=== PATIENT | female | born 1970 | race Caucasian/White ===

== ENCOUNTER 2016-09-28 16:42 | Inpatient (IN) | payer MEDICAID ==
[~2016-09-28] VITALS: Ht 152.4 cm; Wt 43.0 kg
[~2016-09-28 16:42] MED LIST: ASPI1CPM8 PO; ASPI81TA3 PO; ATOR80TA18 PO; CLIN300C7 PO; DICY10CA60 PO; FERR324T10 PO; FOLI-49 PO; GABA300C16 PO; IBUP400T22 PO; LEVE-5 PO; LOPE2CAP PO; MECL12.574 PO; MECL25TA2 PO; METF500T4 PO; MTF1000T PO; ONDA4TAB8 PO; SIME80TA PO
[2016-09-28 16:46] VITALS: Ht 152.4 cm; Wt 43.0 kg
[2016-09-28] MEDS ORDERED: ONDANSETRON 4 MG INJ IV STA (17:25)
[2016-09-28] MEDS ORDERED: SOD CHLORIDE 0.9% 1,000 ML IV STA (17:25)
[2016-09-28 17:44] LABS: ADD SCAN DIFF NO
[2016-09-28 17:46] LABS: BASOPHILS % 0.3 % (0.0-2.0); EOSINOPHILS # 0.1 10^3/ul (0.0-0.5); EOSINOPHILS % 1.2 % (0.0-7.0); HEMATOCRIT 30.5 % (37.0-47.0); HEMOGLOBIN 10.4 g/dl (12.0-16.0); LYMPHOCYTES # 3.4 10^3/ul (0.8-2.9); LYMPHOCYTES % 29.8 % (15.0-51.0); MEAN CORPUSCULAR HEMOGLOBIN 30.1 pg (29.0-33.0); MEAN CORPUSCULAR HGB CONC 34.1 g/dl (32.0-37.0); MEAN CORPUSCULAR VOLUME 88.4 fl (82.0-101.0); MEAN PLATELET VOLUME 10.5 fl (7.4-10.4); MONOCYTE # 0.9 10^3/ul (0.3-0.9); MONOCYTES % 7.6 % (0.0-11.0); NEUTROPHILS % 60.8 % (39.0-77.0); PLATELET COUNT 273 10^3/UL (140-415); RED BLOOD COUNT 3.45 10^6/ul (4.20-5.40); RED CELL DISTRIBUTION WIDTH 12.3 % (11.5-14.5); WHITE BLOOD COUNT 11.5 10^3/ul (4.8-10.8)
[2016-09-28 18:07] LABS: ALBUMIN 4.4 g/dl (3.3-4.9); CHLORIDE 97 mmol/L (97-110)
[2016-09-28 18:08] LABS: POTASSIUM 3.7 mmol/L (3.5-5.1); SODIUM 136 mmol/L (135-144)
[2016-09-28 18:10] LABS: ANION GAP 19 (8-16); ASPARTATE AMINO TRANSFERASE 25 IU/L (15-46); CARBON DIOXIDE 24 mmol/L (21-31)
[2016-09-28 18:11] LABS: ALANINE AMINOTRANSFERASE 33 IU/L (13-69); ALBUMIN/GLOBULIN RATIO 1.33; ALKALINE PHOSPHATASE 62 IU/L (42-121); BLOOD UREA NITROGEN 11 mg/dl (7-20); CALCIUM 9.8 mg/dl (8.4-10.2); GLUCOSE 117 mg/dl (70-220); TOTAL PROTEIN 7.7 g/dl (6.1-8.1)
[2016-09-28 18:13] LABS: AMMONIA < 9 umol/l (9-30)
[2016-09-28 18:15] LABS: ACETAMINOPHEN < 10.0 ug/ml (10.0-30.0); ETHANOL < 10.0 mg/dl; LACTIC ACID 6.7 mmol/L (0.5-2.2); SALICYLATE < 1.0 mg/dl (5.0-30.0)
[2016-09-28] MEDS ORDERED: CEFEPIME 2GM/50 ML (PMX) 50 ML IVPB STA (18:19)
--- NOTE | 2016-09-28 18:24 | RADRPT ---
PROCEDURE: CT brain without contrast CLINICAL INDICATION: Altered mental status TECHNIQUE: CT of the brain without contrast performed on a multidetector CT scanner, with multiplan ar reformats. One or more of the following dose reduction techniques were used: Automated exposure control, adjustment in mA and / or kV according to patient size, use of iterative reconstructive frannie hnique. CTDIvol = 44 mGy; DLP = 720 mGy-cm. COMPARISON: 03/28/2016 FINDINGS: There are areas of hypodensity with loss of foss-white differentiation likely representing infarcts, of indeterminate age involving the bilateral temporal - occipital, and right parietal regions. Ther e are chronic infarcts in the left temporal - parietal lobes redemonstrated, unchanged since the malena or exam. There is a focal area of hypodensity in the central brent. This may be artifactual but an un derlying lesion is difficult to exclude. No acute intracranial hemorrhage is identified. No extra- axial fluid collection is seen. There is no mass effect. No midline shift is identified. Ventricles and sulci are mild - moderately enlarged compatible with volume loss. Atherosclerotic calcifications of the proximal intracranial arteries are noted. Osseous structures are unremarkable. Mastoid air cells and imaged paranasal sinuses grossly clear. IMPRESSION: 1. Interval, age indeterminate bilateral temporal-occipital, right parietal infarcts. 2. Focal hypodensity in the central brent, which may be artifactual, but underlying lesion is diffic ult to exclude. 3. Above findings may be further evaluated with MRI. 4. No acute intracranial hemorrhage. 5. Chronic left temporal - parietal infarcts, unchanged. 6. Mild to moderate volume loss. RPTAT: EE .Shan Kirby MD, MD Date Time Electronically viewed and signed by .Shan Kirby MD, MD on 09/28/2016 18:23 .O/
[2016-09-28 18:26] LABS: TROPONIN-I < 0.012 ng/ml (0.00-0.12)
[2016-09-28] MEDS ORDERED: SOD CHLORIDE 0.9% 500 ML IV ONE (18:30)
[2016-09-28 18:41] LABS: ADD UMIC NO; URINE BILIRUBIN (Dip) NEGATIVE (NEGATIVE); URINE BLOOD (Dip) NEGATIVE (NEGATIVE); URINE COLOR LT. YELLOW (YELLOW); URINE GLUCOSE (Dip) NEGATIVE (NEGATIVE); URINE KETONES (Dip) NEGATIVE (NEGATIVE); URINE LEUKOCYTE ESTERASE (Dip) NEGATIVE (NEGATIVE); URINE NITRITE (Dip) NEGATIVE (NEGATIVE); URINE TOTAL PROTEIN (Dip) NEGATIVE (NEGATIVE); URINE UROBILINOGEN (Dip) 0.2 E.U./dL (0.1-1.0)
[2016-09-28 19:02] LABS: BARBITURATES Negative (NEGATIVE); BENZODIAZEPINES Negative (NEGATIVE); CANNABINOIDS Negative (NEGATIVE); COCAINE Negative (NEGATIVE); OPIATES Negative (NEGATIVE)
[2016-09-28] MEDS ORDERED: LEVETIRACETAM 1000 MG (PMX) 100 ML IVPB ONE (20:00)
--- NOTE | 2016-09-28 21:19 | RADRPT ---
PROCEDURE: XR Chest. CLINICAL INDICATION: Chest pain TECHNIQUE: AP view of the chest was obtained. COMPARISON: 06/17/2012 FINDINGS: The cardiomediastinal silhouette is within normal limits. The lungs are clear. No pleural effusion or pneumothorax is seen. Visualized osseous structures are unremarkable. IMPRESSION: No of active cardiopulmonary disease. RPTAT: EE .Shan Kirby MD, Date Time Electronically viewed and signed by .Shan Kirby MD, on 09/28/2016 21:19 .O/
--- NOTE | 2016-09-28 22:28 | ERA ---
ER Documentation Chief Complaint Date/Time DATE: 09/28/16 TIME: 22:18 Chief Complaint GENERALIZED BODY WEAKNESS,POOR PO INTAKE.HX OF SEIZURE HPI This 46-year-old female presents with generalized weakness since last night. Last night she vomited one time. Today she has very little nauseated but has not vomited. She's also has decreased mental status according her family. She has a history of seizures but seizure was not witnessed by family today. 3 weeks ago she was seen at [facility] for a seizure with a prolonged post ictal period for which she was admitted for. She has no focal areas of weakness and denies any pain. ROS All systems reviewed and are negative except as per history of present illness. Medications Home Meds Active Scripts Ondansetron Hcl* (Zofran*) 4 Mg Tablet, 4 MG PO Q6H for NAUSEA AND/OR VOMITING, #30 TAB Prov:CAT VILLEDA 03/28/16 Loperamide Hcl* (Imodium*) 2 Mg Capsule, 2 MG PO .WITH EACH DIARRHEA Y for DIARRHEA, #5 CAP MAX 16 mg/day Prov:CAT VILLEDA 10/28/15 Dicyclomine Hcl* (Bentyl*) 10 Mg Capsule, 10 MG PO QID for 3 Days, CAP Prov:CAT VILLEDA 10/28/15 Simethicone* (Anti-Gas/80*) 80 Mg Tab.chew, 80 MG PO Q6H Y for DISTENSION/GAS/ BLOATING for 7 Days, TAB.CHEW Prov:CAT VILLEDA 10/28/15 Ibuprofen* (Motrin*) 400 Mg Tab, 400 MG PO Q6, #30 TAB 0 Refills Prov:BECKY SAMANIEGO PA-C 09/12/15 Ondansetron Hcl* (Zofran*) 4 Mg Tablet, 4 MG PO Q8H Y for NAUSEA AND/OR VOMITING , #6 TAB Prov:JOLANTA BAILEY DO 06/12/15 Meclizine Hcl* (Antivert*) 12.5 Mg Tab, 12.5 MG PO Q6H Y for dizziness, #10 TAB Prov:LENORE BAILEYRAM DO 06/12/15 Meclizine Hcl* (Antivert*) 25 Mg Tablet, 25 MG PO Q6H Y for dizziness, #20 TAB Prov:CHASE GARCIA PA-C 03/01/15 Aspirin (Aspirin) 81 Mg Chew, 81 MG PO DAILY for 30 Days, TAB.CHEW Prov:CHANO SMITH 10/11/14 Reported Medications Levetiracetam* (Keppra*) 500 Mg Tablet, 500 MG PO BID 12/11/11 Folic Acid* (Folic Acid*) 1 Mg Tablet, 1 MG PO DAILY 12/11/11 Atorvastatin (Lipitor) 80 Mg Tablet, 80 MG PO DAILY 12/11/11 Dipyridamole-Aspirin* (Aggrenox*) 1 Cap Capsr, 1 CAP PO BID 12/11/11 Metformin* (Glucophage*) 500 Mg Tab, 500 MG PO DAILY 12/11/11 Clindamycin Hcl (Cleocin Hcl) 300 Mg Capsule, 300 MG PO DAILY 05/28/11 Gabapentin* (Gabapentin*) 300 Mg Capsule, 300 MG PO HS 05/28/11 Atorvastatin (Lipitor) 80 Mg Tablet, 80 MG PO DAILY 05/28/11 Levetiracetam* (Keppra*) 500 Mg Tablet, 500 MG PO 05/28/11 Metformin* (Glucophage*) 1,000 Mg Tablet, 1000 MG PO BID 05/28/11 Ferrous Fumarate (Hemocyte) 324 Mg Tablet, 324 MG PO BID 05/28/11 Dipyridamole-Aspirin* (Aggrenox*) 1 Cap Capsr, 1 CAP PO DAILY 05/28/11 Allergies Allergies: Coded Allergies: No Known Allergies (Verified Allergy, Mild, 03/28/16) PMhx/Soc History of Surgery: No Anesthesia Reaction: No Hx Neurological Disorder: Yes (SEIZURES) Hx Respiratory Disorders: No Hx Cardiac Disorders: No Hx Psychiatric Problems: No Hx Miscellaneous Medical Probl: Yes (DM) Hx Alcohol Use: No Hx Substance Use: No Hx Tobacco Use: No Physical Exam Vitals Vital Signs Date Time Temp Pulse Resp B/P Pulse Ox O2 Delivery O2 Flow Rate FiO2 09/28/16 21:49 78 19 122/78 100 Room Air 09/28/16 17:27 98.3 101 20 144/90 100 Room Air 09/28/16 16:46 98.9 91 18 131/76 98 Physical Exam Const: [] No distress Head: Atraumatic Eyes: Normal Conjunctiva ENT: Normal External Ears, Nose and Mouth. Neck: Full range of motion..~ No meningismus. Resp: Clear to auscultation bilaterally Cardio: Regular rate and rhythm, no murmurs Abd: Soft, non tender, non distended. Normal bowel sounds Skin: No petechiae or rashes Back: No midline or flank tenderness Ext: No cyanosis, or edema Neur: Awake and alert and oriented 2, deficit in day of the week, slow to answer some questions, cranial nerves II through XII intact, equal strength all extremities distal and proximal, no cerebellar deficits, gait not tested Psych: Normal Mood and Affect Result Diagram: 09/28/16173909/28/161739 Results 24 hrs Laboratory Tests Test 09/28/16 17:40 09/28/16 18:25 09/28/16 20:45 White Blood Count 11.510^3/ul Red Blood Count 3.4510^6/ul Hemoglobin 10.4g/dl Hematocrit 30.5% Mean Corpuscular Volume 88.4fl Mean Corpuscular Hemoglobin 30.1pg Mean Corpuscular Hemoglobin Concent 34.1g/dl Red Cell Distribution Width 12.3% Platelet Count 52673^3/UL Mean Platelet Volume 10.5fl Neutrophils % 60.8% Lymphocytes % 29.8% Monocytes % 7.6% Eosinophils % 1.2% Basophils % 0.3% Nucleated Red Blood Cells % 0.0/100WBC Neutrophils # 7.010^3/ul Lymphocytes # 3.410^3/ul Monocytes # 0.910^3/ul Eosinophils # 0.110^3/ul Basophils # 0.010^3/ul Nucleated Red Blood Cells # 0.010^3/ul Sodium Level 136mmol/L Potassium Level 3.7mmol/L Chloride Level 97mmol/L Carbon Dioxide Level 24mmol/L Anion Gap 19 Blood Urea Nitrogen 11mg/dl Creatinine 0.70mg/dl Glucose Level 117mg/dl Lactic Acid Level 6.7mmol/L 5.6mmol/L Calcium Level 9.8mg/dl Total Bilirubin 0.0mg/dl Direct Bilirubin 0.00mg/dl Indirect Bilirubin 0.0mg/dl Aspartate Amino Transf (AST/SGOT) 25IU/L Alanine Aminotransferase (ALT/SGPT) 33IU/L Alkaline Phosphatase 62IU/L Ammonia < 9umol/l Troponin I < 0.012ng/ml Total Protein 7.7g/dl Albumin 4.4g/dl Globulin 3.30g/dl Albumin/Globulin Ratio 1.33 Lipase 144U/L Salicylates Level < 1.0mg/dl Acetaminophen Level < 10.0ug/ml Ethyl Alcohol Level < 10.0mg/dl Urine Color LT. YELLOW Urine Clarity CLEAR Urine pH 6.0 Urine Specific [place] 1.010 Urine Ketones NEGATIVE Urine Nitrite NEGATIVE Urine Bilirubin NEGATIVE Urine Urobilinogen 0.2 E.U./dL Urine Leukocyte Esterase NEGATIVE Urine Hemoglobin NEGATIVE Urine Glucose NEGATIVE% Urine Total Protein NEGATIVE Urine Opiates Screen Negative Urine Barbiturates Negative Urine Amphetamines Screen Negative Urine Benzodiazepines Screen Negative Urine Cocaine Screen Negative Urine Cannabinoids Negative Current Medications Medications (Trade) Dose Ordered Sig/Aldo Route PRN Reason Start Time Stop Time Status Last Admin Dose Admin Sodium Chloride (NS) 1,000 ml @ 1,000 mls/hr Q1H STAT IV 09/28/16 17:25 09/28/16 18:24 DC 09/28/16 17:43 Ondansetron HCl 4 mg 4 mg ONCE STAT IV 09/28/16 17:25 09/28/16 17:29 DC 09/28/16 17:43 Cefepime HCl 50 ml @ 100 mls/hr ONCE STAT IVPB 09/28/16 18:19 09/28/16 18:48 DC 09/28/16 19:13 Sodium Chloride 500 ml @ 500 mls/hr Q1H ONCE IV 09/28/16 18:30 09/28/16 19:29 DC 09/28/16 19:13 Levetiracetam 100 ml @ 400 mls/hr ONCE ONCE IVPB 09/28/16 20:00 09/28/16 20:14 DC 09/28/16 20:01 Sodium Chloride (NS) 1,000 ml @ 1,000 mls/hr Q1H ONCE IV 09/28/16 22:30 09/28/16 23:29 UNV Aspirin (Aspirin) 325 mg ONCE ONCE PO 09/28/16 22:30 09/28/16 22:31 UNV Procedures/MDM Seizure with prolonged postictal period. Old infarcts are seen on CT with no acute lesions. I doubt acute stroke on her because patient's lactic acid elevation is consistent with acute seizure. Decreased mental status is most consistent with postictal period. Patient has no other lab abnormalities suspicious for severe dehydration that may cause such high lactic acid. No obvious infection is found either to suggest sepsis causing the increased lactic acid. She did have a slightly elevated white blood cell count which is likely consistent with the seizure. Also had an isolated heart rate just over 100. Still do not believe these indicate sepsis. Prior to receiving all the results I did cover her with 1 g of Rocephin IV. I did give the patient 325 mg aspirin just in case. She is also hydrated with normal saline. Did load her with 1 g of Keppra. I'm going to admit her to telemetry I spoke with Dr. Campo who will be admitting. She'll likely receive a neurology consult and EEG. CT head interpretation: I see no acute process. Old lacunar infarcts visualized. I see no hemorrhage, no mass effect no midline shift, no skull fracture. Chest x-ray interpretation: I see no acute process, no infiltrate, no pulmonary edema, no pneumothorax, no fractures EKG interpretation: Normal sinus rhythm rate of 80, left axis deviation, no ST or T-wave changes concerning for acute ischemia. monitor and storage bin tender interpretation: Normal sinus rhythm without arrhythmia Departure Diagnosis: Primary Impression: Seizure Additional Impressions: Post-ictal state Normocytic anemia Condition: Stable ELISEO VEGA DO Sep 28, 2016 22:27
[2016-09-28] MEDS ORDERED: ASPIRIN 325 MG TAB PO ONE (22:30)
[2016-09-28] MEDS ORDERED: SOD CHLORIDE 0.9% 1,000 ML IV ONE (22:30)
[2016-09-29] VITALS (9 sets, daily range): BP systolic 97–110; BP diastolic 58–67; PULSE 69–95; RESP 16–18; TEMP 98.3
[2016-09-29] MEDS ORDERED: ONDANSETRON 4 MG INJ IV PRN
[2016-09-29] MEDS ORDERED: ACETAMINOPHEN 325 MG TAB PO PRN
[2016-09-29] MEDS ORDERED: MECLIZINE 12.5 MG TAB PO PRN (07:30)
[2016-09-29] MEDS ORDERED: NACL 0.9% 3 ML SYG IV SCH (07:30)
[2016-09-29] MEDS ORDERED: morphine 2 MG INJ IV PRN (07:30)
--- NOTE | 2016-09-29 08:57 | HP ---
DATE OF ADMISSION: 09/28/2016 TIME SEEN: 2330 CHIEF COMPLAINT: Generalized weakness. HISTORY OF PRESENT ILLNESS: The patient is a 46-year-old female with a history of CVA, diabetes, hy pertension, dyslipidemia and seizure disorder who presented to the emergency department with general ized weakness. The patient was seen at [facility] 3 weeks ago for a seizure with a prolonged p ostictal state. When the patient presented to the ER family reported that the patient has been feel ing weak and also she has been having a hard time remembering things, especially since yesterday, wh ich they thought was from recovering from a postictal state. The patient also has been nauseated an d actually vomited once last night which was nonbloody, nonbilious. When she presented to the ER, blood pressure was 131/76, heart rate 91, respiratory rate 18, tempera ture 98.9, oxygen saturation ____% on room air. Laboratory shows a WBC of 11.5, hemoglobin 10.4, la ctic acid of 6.7, which also trended to 3.9. A brain CT was done and it showed age indeterminate bi lateral temporo-occipital and right parietal infarct compared to a CT scan from 03/2016. Also noted was focal hypodensity in the central brent which may be artifactual but underlying lesion is difficu lt to exclude. Also noted is a chronic left temporal-parietal infarct, unchanged. No acute intracr anial hemorrhage was noted. The patient was given IV Keppra, cefepime, IV fluid and Zofran while sh e was in the ER. Note that patient has not witnessed any seizure activity recently except as woo shafer the one that happened 3 weeks ago. REVIEW OF SYSTEMS: Negative except as mentioned in HPI. PAST MEDICAL HISTORY: As per HPI. SOCIAL HISTORY: No history of tobacco, alcohol or illicit drug use. ALLERGIES: NO KNOWN DRUG ALLERGIES. HOME MEDICATIONS: 1. Bentyl. 2. Ferrous fumarate. 3. Lipitor. 4. Aspirin. 5. Gabapentin. 6. Keppra. 7. Meclizine. 8. Zofran. 9. ____ 10. Metformin. 11. Folic acid. PHYSICAL EXAMINATION: VITAL SIGNS: Stable. GENERAL: The patient is sleepy but arousable and appears weak. HEENT: No obvious head deformity. Pupils equal and reactive. Extraocular muscles intact. CARDIOVASCULAR: Slight tachycardia with regular rhythm. LUNGS: Clear anteriorly. ABDOMEN: Soft. No grimaces noted on palpation, nontender. There are positive bowel sounds. EXTREMITIES: No edema. NEUROLOGIC: Both upper extremities with decreased strength. LABORATORY DATA: Pertinent positive results as mentioned in the HPI. IMAGING: Brain CT with results as mentioned in the HPI. Chest x-ray shows no active cardiopulmonar y disease. IMPRESSION: 1. Altered mental status. 2. History of seizure disorder, last seizure 3 weeks ago. 3. History of cerebrovascular accident. 4. Age indeterminate new infarct, probably subacute infarct. 5. Lactic acidosis. 6. History of diabetes. 7. History of hypertension, blood pressure within goal. 8. Mild leukocytosis. PLAN: The patient's altered mentation and weakness could be a result of a seizure or postictal stat e and also given the CT of the head finding of age indeterminant new infarct as compared to the last CAT scan from 6 months ago, it could be from a new CVA. Note that the patient does have a history of a stroke in the past. We will obtain MRI of the brain to further evaluate the new infarct. We w ill continue anti-seizure medication, continue statin and aspirin. We will place a neurology consul t. We will have a physical therapy evaluation. Her lactic acidosis is without a source of infection, but it is currently trending down. Her initia l urinalysis is negative for UTI, but we will check a urine culture as well as a blood culture. A c hest x-ray was negative for acute cardiopulmonary disease. Further workup and management will be per clinical course. Dictated By: ABEL SARAVIA/CANDELARIA Conf#: [id number] DID#: [id number]
[2016-09-29] MEDS ORDERED: FERROUS FUMARATE 324 MG PO SCH (09:00)
[2016-09-29] MEDS: FERROUS FUMARATE (SR) TAB PO SCH ×2 (10:48→20:36)
[2016-09-29] MEDS: ATORVASTATIN 80 MG TAB PO SCH (10:48)
[2016-09-29] MEDS: DIPYRIDAMOLE/ASPIRIN (SR) CAP PO SCH ×2 (10:48→20:36)
[2016-09-29] MEDS: LEVETIRACETAM 500 MG TAB PO SCH ×2 (10:49→20:36)
[2016-09-29] MEDS: ACETAMINOPHEN 325 MG TAB PO PRN ×2 (10:49→20:37)
[2016-09-29 10:51] LABS: ADD SCAN DIFF NO
[2016-09-29] MEDS: DEXTROSE 5%-0.45% NACL 1,000 ML IV SCH ×2 (10:53→21:41)
[2016-09-29] MEDS: ENOXAPARIN 40 MG/0.4 ML SYG SC SCH (10:53)
[2016-09-29 11:00] LABS: BASOPHILS % 0.4 % (0.0-2.0); EOSINOPHILS # 0.1 10^3/ul (0.0-0.5); EOSINOPHILS % 1.3 % (0.0-7.0); HEMATOCRIT 28.9 % (37.0-47.0); HEMOGLOBIN 9.8 g/dl (12.0-16.0); LYMPHOCYTES # 2.1 10^3/ul (0.8-2.9); LYMPHOCYTES % 25.8 % (15.0-51.0); MEAN CORPUSCULAR HEMOGLOBIN 30.6 pg (29.0-33.0); MEAN CORPUSCULAR HGB CONC 33.9 g/dl (32.0-37.0); MEAN CORPUSCULAR VOLUME 90.3 fl (82.0-101.0); MEAN PLATELET VOLUME 10.4 fl (7.4-10.4); MONOCYTE # 0.6 10^3/ul (0.3-0.9); MONOCYTES % 7.6 % (0.0-11.0); NEUTROPHIL # 5.2 10^3/ul (1.6-7.5); NEUTROPHILS % 64.6 % (39.0-77.0); PLATELET COUNT 246 10^3/UL (140-415); RED CELL DISTRIBUTION WIDTH 12.4 % (11.5-14.5)
[2016-09-29 11:09] LABS: ALBUMIN 3.3 g/dl (3.3-4.9)
[2016-09-29 11:10] LABS: POTASSIUM 3.7 mmol/L (3.5-5.1)
[2016-09-29 11:12] LABS: ALBUMIN/GLOBULIN RATIO 1.03; BILIRUBIN,INDIRECT 0.1 mg/dl (0-1.1); BILIRUBIN,TOTAL 0.1 mg/dl (0.2-1.3); CREATININE 0.6 mg/dl (0.44-1.00); TOTAL PROTEIN 6.5 g/dl (6.1-8.1)
[2016-09-29 11:13] LABS: CALCIUM 8.3 mg/dl (8.4-10.2); MAGNESIUM 1.6 mg/dl (1.7-2.5)
[2016-09-29 11:14] LABS: CHOL/HDL RATIO 3.1 RATIO
[2016-09-29] MEDS ORDERED: GLUCAGON 1 MG INJ IM PRN (11:30)
[2016-09-29] MEDS ORDERED: GLUCOSE GEL 15 GRAM TUBE PO PRN ×2 (11:30)
[2016-09-29] MEDS ORDERED: DEXTROSE 50% 50 ML SYRINGE IV PRN ×2 (11:30)
[2016-09-29] MEDS ORDERED: GLUCOSE GEL 15 GRAM TUBE BUCCAL PRN (11:30)
--- NOTE | 2016-09-29 11:50 | RADRPT ---
PROCEDURE: US carotid arteries. CLINICAL INDICATION: Dizziness. TECHNIQUE: Multiple sonographic images of the carotid arteries and vertebral arteries were obtaine d utilizing foss scale, duplex, and color-flow imaging. The images were reviewed on a PACS workstati on. COMPARISON: No prior studies are available for comparison. FINDINGS: Evaluation of the right carotid bifurcation region reveals no atherosclerotic disease. Evaluation of the left carotid bifurcation region reveals no atherosclerotic disease. There is antegrade flow within the vertebral arteries bilaterally. RIGHT CAROTID MEASUREMENTS: Common Carotid [id number] (cm/sec) Internal Carotid Artery 116 (cm/sec) External Carotid Artery 116 (cm/sec) Vertebral Artery 93 (cm/sec) Internal Carotid/Common Carotid1.2 LEFT CAROTID MEASUREMENTS: Common Carotid [id number] (cm/sec) Internal Carotid Artery 114 (cm/sec) External Carotid Artery 97 (cm/sec) Vertebral Artery 18 (cm/sec) Internal Carotid/Common Carotid1.0 Validated velocity measurements with angiographic measurements. Velocity criteria are extrapolated f rom diameter data as defined by the Society of Radiologists in Ultrasound Consensus Conference. Radi ology 2003; 229;340-346. This study does indirectly reference the measurement of the distal ICA shiloh meter as the denominator for stenosis measurement. IMPRESSION: 1. Normal carotid arteries. 2. Normal antegrade flow in the vertebral arteries bilaterally. RPTAT: QQ SRU Consensus Conference Criteria for the Diagnosis of Carotid Artery Stenosis* Degree of Stenosis, % ICA PSV, cm/sec Plaque Estimate, % ICA/CCA PSV Ratio Normal <125 None <2.0 <50 <125 <50 <2.0 50 69 125-230 >50 2.0-4.0 >70 but less than near occlusion >230 >50 <4.0 Near occlusion High, low, or undetectable Visible Variable Total occlusion Undetectable Visible, no detectable lumen Not applicable *Cartoid artery stenosis: foss-scale and Doppler US diagnosis. Society of Radiologists in Ultrasound Consensus Conference. Radiology 2003; 229: 340-346 .Lenin Santamaria MD, MD Date Time Electronically viewed and signed by .Lenin Santamaria MD, on 09/29/2016 11:50 .R/
--- NOTE | 2016-09-29 11:58 | PN ---
Date/Time of Note Date/Time of Note DATE: 09/29/16 TIME: 11:56 Assessment/Plan VTE Prophylaxis VTE Prophylaxis Intervention: SCD's Lines/Catheters IV Catheter Type (from Nrs): Peripheral IV Assessment/Plan Assessment/Plan 1. Altered mental status. 2. History of seizure disorder, last seizure 3 weeks ago. 3. History of cerebrovascular accident. 4. Age indeterminate new infarct, probably subacute infarct. 5. Lactic acidosis. 6. History of diabetes. 7. History of hypertension, blood pressure within goal. 8. Mild leukocytosis. PLAN: start diet, pt passed swallow MRI brain, CT showed old stroke BP control Activity as tolerated will follow up Subjective 24 Hr Interval Summary Free Text/Dictation doing ok, bP stable, Wants to eat Exam/Review of Systems Vital Signs Vitals Vital Signs Date Time Temp Pulse Resp B/P Pulse Ox O2 Delivery O2 Flow Rate FiO2 09/29/16 11:47 98.9 73 16 98/62 98 09/29/16 07:22 Room Air Exam GENERAL: The patient is sleepy but arousable and appears weak. HEENT: No obvious head deformity. Pupils equal and reactive. Extraocular muscles intact. CARDIOVASCULAR: Slight tachycardia with regular rhythm. LUNGS: Clear anteriorly. ABDOMEN: Soft. No grimaces noted on palpation, nontender. There are positive bowel sounds. EXTREMITIES: No edema. NEUROLOGIC: Both upper extremities with decreased strength. Results Result Diagram: 09/29/16 1030 09/29/16 1030 Results 24 hrs Laboratory Tests Test 09/28/16 17:40 09/28/16 18:25 09/28/16 20:45 09/28/16 23:00 White Blood Count 11.5 #H Red Blood Count 3.45 L Hemoglobin 10.4 L Hematocrit 30.5 L Mean Corpuscular Volume 88.4 Mean Corpuscular Hemoglobin 30.1 Mean Corpuscular Hemoglobin Concent 34.1 Red Cell Distribution Width 12.3 # Platelet Count 273 Mean Platelet Volume 10.5 #H Neutrophils % 60.8 Lymphocytes % 29.8 Monocytes % 7.6 Eosinophils % 1.2 Basophils % 0.3 Nucleated Red Blood Cells % 0.0 Neutrophils # 7.0 Lymphocytes # 3.4 H Monocytes # 0.9 Eosinophils # 0.1 Basophils # 0.0 Nucleated Red Blood Cells # 0.0 Sodium Level 136 Potassium Level 3.7 Chloride Level 97 Carbon Dioxide Level 24 Anion Gap 19 H Blood Urea Nitrogen 11 Creatinine 0.70 Glucose Level 117 Lactic Acid Level 6.7 *H 5.6 *H 3.9 H Calcium Level 9.8 Total Bilirubin 0.0 L Direct Bilirubin 0.00 Indirect Bilirubin 0.0 Aspartate Amino Transf (AST/SGOT) 25 Alanine Aminotransferase (ALT/SGPT) 33 Alkaline Phosphatase 62 Ammonia < 9 L Troponin I < 0.012 Total Protein 7.7 Albumin 4.4 Globulin 3.30 H Albumin/Globulin Ratio 1.33 Lipase 144 Salicylates Level < 1.0 L Acetaminophen Level < 10.0 L Ethyl Alcohol Level < 10.0 Urine Color LT. YELLOW Urine Clarity CLEAR Urine pH 6.0 Urine Specific [place] 1.010 Urine Ketones NEGATIVE Urine Nitrite NEGATIVE Urine Bilirubin NEGATIVE Urine Urobilinogen 0.2 E.U./dL Urine Leukocyte Esterase NEGATIVE Urine Hemoglobin NEGATIVE Urine Glucose NEGATIVE Urine Total Protein NEGATIVE Urine Opiates Screen Negative Urine Barbiturates Negative Urine Amphetamines Screen Negative Urine Benzodiazepines Screen Negative Urine Cocaine Screen Negative Urine Cannabinoids Negative Test 09/29/16 10:30 White Blood Count 8.0 # Red Blood Count 3.20 L Hemoglobin 9.8 L Hematocrit 28.9 L Mean Corpuscular Volume 90.3 Mean Corpuscular Hemoglobin 30.6 Mean Corpuscular Hemoglobin Concent 33.9 Red Cell Distribution Width 12.4 Platelet Count 246 Mean Platelet Volume 10.4 Neutrophils % 64.6 Lymphocytes % 25.8 Monocytes % 7.6 Eosinophils % 1.3 Basophils % 0.4 Nucleated Red Blood Cells % 0.0 Neutrophils # 5.2 Lymphocytes # 2.1 Monocytes # 0.6 Eosinophils # 0.1 Basophils # 0.0 Nucleated Red Blood Cells # 0.0 Sodium Level 139 Potassium Level 3.7 Chloride Level 106 Carbon Dioxide Level 24 Anion Gap 13 Blood Urea Nitrogen 9 Creatinine 0.60 Glucose Level 108 Hemoglobin A1c 6.2 H Calcium Level 8.3 L Magnesium Level 1.6 L Total Bilirubin 0.1 L Direct Bilirubin 0.00 Indirect Bilirubin 0.1 Aspartate Amino Transf (AST/SGOT) 22 Alanine Aminotransferase (ALT/SGPT) 36 Alkaline Phosphatase 56 Total Protein 6.5 # Albumin 3.3 # Globulin 3.20 Albumin/Globulin Ratio 1.03 Triglycerides Level 116 Cholesterol Level 106 LDL Cholesterol, Calculated 49 HDL Cholesterol 34 Cholesterol/HDL Ratio 3.1 Medications Medications Current Medications Dextrose/Sodium Chloride (D5-1/2ns) 1,000 ml @ 70 mls/hr [id number] IV Last administered on 09/29/16 10:53; Admin Dose 70 MLS/HR; Start 09/29/16 at 07:23 Ondansetron HCl (Zofran Inj) 4 mg Q6H PRN IV NAUSEA AND/OR VOMITING; Start at 07:30 Acetaminophen (Tylenol Tab) 650 mg Q6H PRN PO PAIN LEVEL 1-3 OR FEVER Last administered on 09/29/16 10:49; Admin Dose 650 MG; Start 09/29/16 at 07:30 Morphine Sulfate (morphine) 2 mg Q4H PRN IV PAIN LEVEL 7-10; Start 09/29/16 at 07:30 Enoxaparin Sodium (Lovenox) 40 mg DAILY SC Last administered on 09/29/16 10:53 ; Admin Dose 40 MG; Start 09/29/16 at 09:00 Atorvastatin Calcium (Lipitor) 80 mg DAILY PO Last administered on 09/29/16 10 :48; Admin Dose 80 MG; Start 09/29/16 at 09:00 Dipyridamole/ Aspirin (Aggrenox) 1 cap BID PO Last administered on 09/29/16 10 :48; Admin Dose 1 CAP; Start 09/29/16 at 09:30 Levetiracetam (Keppra) 500 mg BID PO Last administered on 09/29/16 10:49; Admin Dose 500 MG; Start 09/29/16 at 09:00 Meclizine HCl (Antivert) 12.5 mg Q6H PRN PO dizziness; Start 09/29/16 at 07:30 Docusate Sodium/ Ferrous Fumarate (Susy-Sequels) 1 tab BID PO Last administered on 09/29/16 10:48; Admin Dose 1 TAB; Start 09/29/16 at 10:00 Insulin Aspart (Novolog Insulin Pen) NOVOLOG *MILD* ALGORITHM Q6 SC ; Start at 12:00 Diagnostic Test (Pha) (Accu-Chek) 1 ea Q6 XX ; Start 09/29/16 at 12:00 Miscellaneous Information 1 ea NOTE XX ; Start 09/29/16 at 11:30 Glucose (Glutose) 15 gm Q15M PRN PO DECREASED GLUCOSE; Start 09/29/16 at 11:30 Glucose (Glutose) 22.5 gm Q15M PRN PO DECREASED GLUCOSE; Start 09/29/16 at 11: 30 Dextrose (D50w Syringe) 25 ml Q15M PRN IV DECREASED GLUCOSE; Start 09/29/16 at 11:30 Dextrose (D50w Syringe) 50 ml Q15M PRN IV DECREASED GLUCOSE; Start 09/29/16 at 11:30 Glucagon (Glucagen) 1 mg Q15M PRN IM DECREASED GLUCOSE; Start 09/29/16 at 11:30 Glucose (Glutose) 15 gm Q15M PRN BUCCAL DECREASED GLUCOSE; Start 09/29/16 at 11 :30 FANNY ASHRAF MD Sep 29, 2016 11:58
[2016-09-29] MEDS ORDERED: ACCU-CHEK XX SCH ×2 (12:00)
[2016-09-29] MEDS ORDERED: INSULIN ASPART [NOVOLOG] 3 ML PEN SC SCH (12:00)
[2016-09-29] MEDS: ONDANSETRON 4 MG INJ IV PRN ×3 (13:11→23:21)
--- NOTE | 2016-09-29 15:52 | RADRPT ---
PROCEDURE: MR Brain without contrast. CLINICAL INDICATION: 46-year-old female with suspected acute infarct. TECHNIQUE: An MRI of the brain was performed without contrast utilizing the following sequences: Sagittal T1 weighted, sagittal FLAIR, axial T1, axial FLAIR, axial T2 weighted, axial diffusion weig hted, axial ADC mapping. Images were reviewed on a PACS workstation. COMPARISON: 09/28/2016, 03/28/2016, 11/23/2013, 02/05/2013 FINDINGS: Diffusion weighted sequences demonstrate interval development of acute lobar infarction involving th e right posterior temporal and occipital lobes, with diffuse gyral swelling in these regions. There is also suggestion of diffusion restriction involving the left medial frontal lobe (axial series im age 11). There is stable appearance of encephalomalacia involving the left posterior temporal lobe, which is stable compared to prior CT examinations. There is ex vacuo enlargement of the atrium / oc cipital horn of the left lateral ventricle related to the volume loss from prior infarct. The brain stem and cerebellum are normal in appearance. There is a baseline mild to moderate prominence of th e cerebral sulci, lateral and third ventricles. There is no intracranial hemorrhage, extra-axial fl uid collection, mass lesion, midline shift or hydrocephalous. There is a baseline of mild to modera te periventricular and subcortical white matter lesions, which may be related to chronic microangiopathic changes. Normal flow voids are visible the proximal intracranial arteries and dura l sinuses, indicating patency. The midline structures are intact. The paranasal sinuses, mastoid air cells and middle ear cavities are normally aerated. The orbits, calvarium and extracranial soft tissues are normal in appearance. The cerebellopontine angles are no rmal. No evidence of internal acoustic canal or cerebellopontine angle mass. IMPRESSION: 1. 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 CTA of the neck and head is recommended for fur ther evaluation. 2. Suggestion of acute infarct involving the medial left temporal lobe, which were not visualized o n the prior examinations. 3. No intracranial hemorrhage, mass lesion or hydrocephalous. 4. Stable mild to moderate peripheral and central cerebral volume loss. 5. Stable mild to moderate periventricular and subcortical white matter lesions, which may be relat ed to chronic microangiopathic changes versus sequelae of migraine headaches. The above findings were discussed with Patient's Nurse Dilia by telephone on 09/29/2016 3:48:48 PM. RPTAT: HGAS .Salazar Escobar MD, Date Time Electronically viewed and signed by .Salazar Escobar MD, MD on 09/29/2016 15:51 .S/
[2016-09-29] MEDS: ACCU-CHEK XX SCH ×2 (17:35→20:36)
[2016-09-29] MEDS: INSULIN ASPART [NOVOLOG] 3 ML PEN SC SCH ×2 (18:02→20:36)
[2016-09-29] MEDS ORDERED: IODIXANOL LOCM 100 ML BTL ONE (18:11)
[2016-09-29] MEDS ORDERED: SOD CHLORIDE 0.9% 100 ML ONE (18:11)
--- NOTE | 2016-09-29 19:28 | RADRPT ---
PROCEDURE: CTA head and neck CLINICAL INDICATION: CVA. Altered mental status. TECHNIQUE: The study was performed utilizing multidetector CT scanner. Direct thin section axial s ections were obtained through the head and neck after the uneventful administration of 100 cc of Vis ipaque 320 nonionic intravenous contrast material. Coronal and sagittal as well as maximal intensit y projection reformations were obtained. 3-D images were made. The images were reviewed on a PACS w orkstation. One or more the following does reduction techniques were utilized: Automated exposure co ntrol, adjustment of themA/ or kV according to patient's size, or use of iterative reconstruction te chnique. The total CTDIvol is 49.5, 8.37 mGy and the DLP is 329.4 mGy-cm. COMPARISON: Brain MRI of the same day. Carotid ultrasound of the same day. FINDINGS: CTA NECK: The origins of the great vessels off the aortic arch are patent without significant stenosis. The c ommon carotid and internal carotid arteries are patent without significant stenosis by NASCET criter ia. Direct measurements of vessel diameters was made in reference to measurements of the distal inte rnal carotid artery diameter. The vertebral arteries are also patent without high-grade stenosis. CTA BRAIN: The internal carotid arteries are patent without significant stenosis. The proximal middle cerebral arteries and anterior cerebral arteries are patent without significant stenosis. The intracranial v ertebral arteries, basilar artery, and posterior cerebral arteries are also unremarkable without sig nificant stenosis. No aneurysm or vascular malformation is identified. IMPRESSION: 1. Patent major intracranial and neck arteries. RPTAT: HH .Cliff Robertson MD, MD Date Time Electronically viewed and signed by .Cliff Robertson MD, MD on 09/29/2016 19:28 .N/
[2016-09-29] MEDS ORDERED: SUMATRIPTAN 6 MG/0.5 ML INJ SC ONE (23:00)
[2016-09-30] VITALS (12 sets, daily range): BP systolic 107–116; BP diastolic 55–73; PULSE 59–103; RESP 16–18
--- NOTE | 2016-09-30 00:22 | RADRPT ---
PROCEDURE: CTA head and neck CLINICAL INDICATION: CVA. Altered mental status. TECHNIQUE: The study was performed utilizing multidetector CT scanner. Direct thin section axial se ctions were obtained through the head and neck after the uneventful administration of 100 cc of Visi paque 320 nonionic intravenous contrast material. Coronal and sagittal as well as maximal intensity projection reformations were obtained. 3-D images were made. The images were reviewed on a PACS work station. One or more the following does reduction techniques were utilized: Automated exposure contr ol, adjustment of themA/ or kV according to patient's size, or use of iterative reconstruction techn ique. The total CTDIvol is 49.5, 8.37 mGy and the DLP is 329.4 mGy-cm. COMPARISON: Brain MRI of the same day. Carotid ultrasound of the same day. FINDINGS: CTA NECK: The origins of the great vessels off the aortic arch are patent without significant stenosis. The co mmon carotid and internal carotid arteries are patent without significant stenosis by NASCET criteri a. Direct measurements of vessel diameters was made in reference to measurements of the distal inter nal carotid artery diameter. The vertebral arteries are also patent without high-grade stenosis. CTA BRAIN: The internal carotid arteries are patent without significant stenosis. The proximal middle cerebral arteries and anterior cerebral arteries are patent without significant stenosis. The intracranial ve rtebral arteries, basilar artery, and posterior cerebral arteries are also unremarkable without sign ificant stenosis. No aneurysm or vascular malformation is identified. IMPRESSION: 1. Patent major intracranial and neck arteries. RPTAT: HH .Cliff Robertson MD, MD Date Time Electronically viewed and signed by .Cliff Robertson MD, MD on 09/30/2016 00:21 .N/
[2016-09-30] MEDS: DEXTROSE 5%-0.45% NACL 1,000 ML IV SCH ×2 (06:33→11:58)
[2016-09-30] MEDS: ACCU-CHEK XX SCH ×3 (07:30→17:35)
[2016-09-30 07:37] LABS: ADD SCAN DIFF NO
[2016-09-30 07:43] LABS: BASOPHILS % 0.3 % (0.0-2.0); EOSINOPHILS # 0.1 10^3/ul (0.0-0.5); EOSINOPHILS % 0.9 % (0.0-7.0); HEMATOCRIT 29.6 % (37.0-47.0); LYMPHOCYTES # 3.1 10^3/ul (0.8-2.9); LYMPHOCYTES % 28.9 % (15.0-51.0); MEAN CORPUSCULAR HEMOGLOBIN 30.4 pg (29.0-33.0); MEAN CORPUSCULAR HGB CONC 33.8 g/dl (32.0-37.0); MEAN PLATELET VOLUME 10.6 fl (7.4-10.4); MONOCYTE # 0.9 10^3/ul (0.3-0.9); MONOCYTES % 8.3 % (0.0-11.0); NEUTROPHIL # 6.6 10^3/ul (1.6-7.5); NEUTROPHILS % 61.2 % (39.0-77.0); PLATELET COUNT 266 10^3/UL (140-415); RED BLOOD COUNT 3.29 10^6/ul (4.20-5.40); RED CELL DISTRIBUTION WIDTH 12.4 % (11.5-14.5); WHITE BLOOD COUNT 10.7 10^3/ul (4.8-10.8)
[2016-09-30 08:05] LABS: CALCIUM 8.5 mg/dl (8.4-10.2); CREATININE 0.61 mg/dl (0.44-1.00); MAGNESIUM 1.7 mg/dl (1.7-2.5); PHOSPHORUS 3.2 mg/dl (2.5-4.9); POTASSIUM 4.1 mmol/L (3.5-5.1)
[2016-09-30] MEDS: ATORVASTATIN 80 MG TAB PO SCH (08:37)
[2016-09-30] MEDS: FERROUS FUMARATE (SR) TAB PO SCH ×2 (08:37→21:24)
[2016-09-30] MEDS: LEVETIRACETAM 500 MG TAB PO SCH ×2 (08:37→21:24)
[2016-09-30] MEDS: DIPYRIDAMOLE/ASPIRIN (SR) CAP PO SCH ×2 (08:37→21:24)
[2016-09-30] MEDS: ENOXAPARIN 40 MG/0.4 ML SYG SC SCH (08:40)
[2016-09-30] MEDS: INSULIN ASPART [NOVOLOG] 3 ML PEN SC SCH ×4 (09:55→21:25)
--- NOTE | 2016-09-30 10:16 | PN ---
Date/Time of Note Date/Time of Note DATE: 09/30/16 TIME: 10:10 Assessment/Plan VTE Prophylaxis VTE Prophylaxis Intervention: SCD's Lines/Catheters IV Catheter Type (from Nrsg): Peripheral IV Assessment/Plan Assessment/Plan 1. Altered mental status 2/2 acute CVA 2. acute CVA involving right posterior temporal and occipital lobes, concerning for right DOCUMENTATION LEAD distribution infarct. CTA of the neck and head is recommended for further evaluation. Suggestion of acute infarct involving the medial left temporal lobe. 3. History of seizure disorder, last seizure 3 weeks ago. 4. History of cerebrovascular accident. 5. History of diabetes. 7. History of hypertension, blood pressure within goal. 8. Mild leukocytosis. PLAN: started diet, pt passed swallow.s/p speech consult MRI brain showed acute CVA, CTA head and neck has been ordered neurolgoy to see pt Acute rehab consult BP control PT to evaluate pt for ambulation and safety will follow up Subjective 24 Hr Interval Summary Free Text/Dictation MRI showed acute infarction involving the right posterior temporal and occipital lobes, concerning for right DOCUMENTATION LEAD distribution infarct. CTA of the neck and head is recommended for further evaluation. Suggestion of acute infarct involving the medial left temporal lobe, which were not visualized on the prior examinations. Neurology consulted, BP stable, started on DIet Exam/Review of Systems Vital Signs Vitals Vital Signs Date Time Temp Pulse Resp B/P Pulse Ox O2 Delivery O2 Flow Rate FiO2 09/30/16 08:00 100 09/30/16 07:38 98.2 18 107/66 100 09/29/16 07:22 Room Air Intake and Output 09/29/16 09/29/16 09/30/16 15:00 23:00 07:00 Intake Total 200 ml Balance 200 ml Exam GENERAL: more alert, passed swallow HEENT: No obvious head deformity. Pupils equal and reactive. Extraocular muscles intact. CARDIOVASCULAR: Slight tachycardia with regular rhythm. LUNGS: Clear anteriorly. ABDOMEN: Soft. No grimaces noted on palpation, nontender. There are positive bowel sounds. EXTREMITIES: No edema. NEUROLOGIC: Both upper extremities with decreased strength. Constitutional: alert, oriented, well developed Results Result Diagram: 09/30/16 0632 09/30/16 0633 Results 24 hrs Laboratory Tests Test 09/29/16 10:30 09/29/16 12:25 09/29/16 17:53 09/29/16 20:34 White Blood Count 8.0 # Red Blood Count 3.20 L Hemoglobin 9.8 L Hematocrit 28.9 L Mean Corpuscular Volume 90.3 Mean Corpuscular Hemoglobin 30.6 Mean Corpuscular Hemoglobin Concent 33.9 Red Cell Distribution Width 12.4 Platelet Count 246 Mean Platelet Volume 10.4 Neutrophils % 64.6 Lymphocytes % 25.8 Monocytes % 7.6 Eosinophils % 1.3 Basophils % 0.4 Nucleated Red Blood Cells % 0.0 Neutrophils # 5.2 Lymphocytes # 2.1 Monocytes # 0.6 Eosinophils # 0.1 Basophils # 0.0 Nucleated Red Blood Cells # 0.0 Sodium Level 139 Potassium Level 3.7 Chloride Level 106 Carbon Dioxide Level 24 Anion Gap 13 Blood Urea Nitrogen 9 Creatinine 0.60 Glucose Level 108 Hemoglobin A1c 6.2 H Calcium Level 8.3 L Magnesium Level 1.6 L Total Bilirubin 0.1 L Direct Bilirubin 0.00 Indirect Bilirubin 0.1 Aspartate Amino Transf (AST/SGOT) 22 Alanine Aminotransferase (ALT/SGPT) 36 Alkaline Phosphatase 56 Total Protein 6.5 # Albumin 3.3 # Globulin 3.20 Albumin/Globulin Ratio 1.03 Triglycerides Level 116 Cholesterol Level 106 LDL Cholesterol, Calculated 49 HDL Cholesterol 34 Cholesterol/HDL Ratio 3.1 Bedside Glucose 140 208 176 Test 09/30/16 06:32 09/30/16 06:33 09/30/16 08:28 White Blood Count 10.7 # Red Blood Count 3.29 L Hemoglobin 10.0 L Hematocrit 29.6 L Mean Corpuscular Volume 90.0 Mean Corpuscular Hemoglobin 30.4 Mean Corpuscular Hemoglobin Concent 33.8 Red Cell Distribution Width 12.4 Platelet Count 266 Mean Platelet Volume 10.6 H Neutrophils % 61.2 Lymphocytes % 28.9 Monocytes % 8.3 Eosinophils % 0.9 Basophils % 0.3 Nucleated Red Blood Cells % 0.0 Neutrophils # 6.6 Lymphocytes # 3.1 H Monocytes # 0.9 Eosinophils # 0.1 Basophils # 0.0 Nucleated Red Blood Cells # 0.0 Sodium Level 136 Potassium Level 4.1 Chloride Level 105 Carbon Dioxide Level 24 Anion Gap 11 Blood Urea Nitrogen 6 L Creatinine 0.61 Glucose Level 160 Calcium Level 8.5 Phosphorus Level 3.2 Magnesium Level 1.7 Bedside Glucose 160 Medications Medications Current Medications Dextrose/Sodium Chloride (D5-1/2ns) 1,000 ml @ 70 mls/hr [id number] IV Last administered on 09/30/16 06:33; Admin Dose 70 MLS/HR; Start 09/29/16 at 07:23 Ondansetron HCl (Zofran Inj) 4 mg Q6H PRN IV NAUSEA AND/OR VOMITING Last administered on 09/29/16 16:24; Admin Dose 4 MG; Start 09/29/16 at 07:30 Acetaminophen (Tylenol Tab) 650 mg Q6H PRN PO PAIN LEVEL 1-3 OR FEVER Last administered on 09/29/16 20:37; Admin Dose 650 MG; Start 09/29/16 at 07:30 Morphine Sulfate (morphine) 2 mg Q4H PRN IV PAIN LEVEL 7-10 Last administered on 09/29/16 22:38; Admin Dose 2 MG; Start 09/29/16 at 07:30 Enoxaparin Sodium (Lovenox) 40 mg DAILY SC Last administered on 09/30/16 08:40 ; Admin Dose 40 MG; Start 09/29/16 at 09:00 Atorvastatin Calcium (Lipitor) 80 mg DAILY PO Last administered on 09/30/16 08 :37; Admin Dose 80 MG; Start 09/29/16 at 09:00 Dipyridamole/ Aspirin (Aggrenox) 1 cap BID PO Last administered on 09/30/16 08 :37; Admin Dose 1 CAP; Start 09/29/16 at 09:30 Levetiracetam (Keppra) 500 mg BID PO Last administered on 09/30/16 08:37; Admin Dose 500 MG; Start 09/29/16 at 09:00 Meclizine HCl (Antivert) 12.5 mg Q6H PRN PO dizziness Last administered on 09/29 14:56; Admin Dose 12.5 MG; Start 09/29/16 at 07:30 Docusate Sodium/ Ferrous Fumarate (Susy-Sequels) 1 tab BID PO Last administered on 09/30/16 08:37; Admin Dose 1 TAB; Start 09/29/16 at 10:00 Miscellaneous Information 1 ea NOTE XX ; Start 09/29/16 at 11:30 Glucose (Glutose) 15 gm Q15M PRN PO DECREASED GLUCOSE; Start 09/29/16 at 11:30 Glucose (Glutose) 22.5 gm Q15M PRN PO DECREASED GLUCOSE; Start 09/29/16 at 11: 30 Dextrose (D50w Syringe) 25 ml Q15M PRN IV DECREASED GLUCOSE; Start 09/29/16 at 11:30 Dextrose (D50w Syringe) 50 ml Q15M PRN IV DECREASED GLUCOSE; Start 09/29/16 at 11:30 Glucagon (Glucagen) 1 mg Q15M PRN IM DECREASED GLUCOSE; Start 09/29/16 at 11:30 Glucose (Glutose) 15 gm Q15M PRN BUCCAL DECREASED GLUCOSE; Start 09/29/16 at 11 :30 Ondansetron HCl (Zofran Inj) 4 mg Q4H PRN IV NAUSEA AND/OR VOMITING Last administered on 09/29/16t 23:21; Admin Dose 4 MG; Start 09/29/16 at 12:30 FANNY ASHRAF MD Sep 30, 2016 10:16
--- NOTE | 2016-09-30 11:04 | RADRPT ---
Echocardiogram Report Patient Name: DEANN ROMERO Gender: Female Date: 1970 Study Date: 29-Sep-2016 Network Control Supervisor: SABRINA Location: I Ref. Physician: ABEL BERMAN Quality: Adequate Procedures: Transthoracic echocardiogram examination, TDS patient very confused. Indications: Cerebrovascular Accident. 2D/M Mode Doppler Measurement Value Normal Range Measurement Value Normal Range LVIDd 2D 3.4 3.5 - 5.6 cm AV Peak Robinson 1.4 m/sec LVIDs 2D 2.2 2.1 - 4.1 cm AV Peak PG 8.3 mmHg LVPWd 2D 1.1 0.6 - 1.1 cm LVOT Peak Robinson 1.1 m/sec IVSd 2D 1.1 0.6 - 1.1 cm LVOT Peak PG 5.1 mmHg EDV 2D 46.1 cm3 MV E Peak Robinson 0.7 m/sec ESV 2D 11.1 cm3 MV A Peak Robinson 0.5 m/sec LA Dimen 2D 2.8 2.3 - 4.0 cm MV E/A 1.5 MV Decel Time 210 msec MV Decel [place] 3 MV E/A 1.5 Findings Left Ventricle: Normal left ventricular cavity size, wall thickness and systolic function. Normal left ventricular cavity size. Normal left ventricular systolic function. Normal left ventricular diastolic function for age as measured by tissue Doppler/Mitral Doppler indices. Normal left ventricular wall thickness. The left ventricular ejection fraction is visually estimated at 65 %. Right Ventricle: Normal right ventricular size. Normal right ventricular systolic function. Left Atrium: The left atrium is normal in size and appearance. No left atrial thrombus. Right Atrium: The right atrium is normal in size and appearance. Atrial Septum: Normal atrial septum. Mitral Valve: Normal appearance and function of the mitral valve with trace physiologic regurgitation. Aortic Valve: Normal appearance and function of the aortic valve, however not imaged in short axis images. No hemodynamically significant aortic stenosis by Doppler. No aortic regurgitation. Tricuspid Valve: Normal appearance of the tricuspid valve. No evidence of tricuspid regurgitation. Pulmonic Valve: The pulmonic valve is not well visualized. Pericardium: Normal pericardium with no significant pericardial effusion. Aorta: Normal aortic root. IVC: Normal inferior vena cava appearance. Pulmonary Artery: Pulmonary artery is not well visualized. Conclusions 1.Normal left ventricular cavity size. Normal left ventricular systolic function. Normal left ventricular diastolic function for age as measured by tissue Doppler/Mitral Doppler indices. Normal left ventricular wall thickness. The left ventricular ejection fraction is visually estimated at 65 %. 2.No significant valvular disease. 3.PAP could not be estimated. RA pressure is 3 mmHg. Electronically Signed By: Saurav Moore 30-Sep-2016 11:03:35 -[id number] Patient Name: DEANN ROMERO Study Date: 29-Sep-2016 [id number]
[2016-09-30] MEDS: ACETAMINOPHEN 325 MG TAB PO PRN ×2 (11:51→19:44)
[2016-09-30] MEDS: ONDANSETRON 4 MG INJ IV PRN (22:29)
[2016-09-30] MEDS: IBUPROFEN 800 MG TAB PO PRN (23:36)
[2016-10-01] VITALS (12 sets, daily range): BP systolic 109–124; BP diastolic 54–72; PULSE 75–95; RESP 16–18
[2016-10-01] MEDS: ACETAMINOPHEN 325 MG TAB PO PRN ×2 (01:56→16:04)
[2016-10-01] MEDS: ACCU-CHEK XX SCH (02:05)
[2016-10-01] MEDS: DEXTROSE 5%-0.45% NACL 1,000 ML IV SCH ×2 (02:17→08:21)
[2016-10-01 07:06] LABS: INR 1.17; PT RATIO 1.2
[2016-10-01 07:07] LABS: PARTIAL THROMBOPLASTIN TIME 29.4 Sec (25.0-35.0)
[2016-10-01 07:09] LABS: CALCIUM 8.8 mg/dl (8.4-10.2); CREATININE 0.57 mg/dl (0.44-1.00); POTASSIUM 4.6 mmol/L (3.5-5.1)
[2016-10-01] MEDS: IBUPROFEN 800 MG TAB PO PRN (08:21)
[2016-10-01] MEDS: LEVETIRACETAM 500 MG TAB PO SCH ×2 (08:21→21:51)
[2016-10-01] MEDS: FERROUS FUMARATE (SR) TAB PO SCH ×2 (08:21→21:51)
[2016-10-01] MEDS: DIPYRIDAMOLE/ASPIRIN (SR) CAP PO SCH ×2 (08:21→21:51)
[2016-10-01] MEDS: ATORVASTATIN 80 MG TAB PO SCH (08:29)
[2016-10-01] MEDS: INSULIN ASPART [NOVOLOG] 3 ML PEN SC SCH ×4 (08:29→22:00)
[2016-10-01] MEDS: ENOXAPARIN 40 MG/0.4 ML SYG SC SCH (08:30)
[2016-10-01] MEDS: ONDANSETRON 4 MG INJ IV PRN (12:09)
--- NOTE | 2016-10-01 14:10 | PN ---
Date/Time of Note Date/Time of Note DATE: 10/01/16 TIME: 13:56 Assessment/Plan VTE Prophylaxis VTE Prophylaxis Intervention: LMWH Lines/Catheters IV Catheter Type (from Nrsg): Peripheral IV Assessment/Plan Assessment/Plan 1. Acute CVA involving right posterior temporal and occipital lobes without neurological deficit, negative CTA head/neck, aggrenox, lipitor, PT 2. Altered mental status 2/2 acute CVA, resolved 3. Seizure disorder, last seizure 3 weeks ago. on keppra 4. DM, was on metformin that is held for CTA, on ISS 5. Hypertension, controlled 6. Hypomagnesium, Mg supplement 7. DVT prophylaxis, lovenox Subjective 24 Hr Interval Summary Free Text/Dictation generalized weakness. no seizure Exam/Review of Systems Vital Signs Vitals Vital Signs Date Time Temp Pulse Resp B/P Pulse Ox O2 Delivery O2 Flow Rate FiO2 10/01/16 12:00 95 10/01/16 11:54 99.2 17 112/65 100 09/29/16 07:22 Room Air Intake and Output 09/30/16 09/30/16 10/01/16 15:00 23:00 07:00 Intake Total 600 ml 1420 ml Balance 600 ml 1420 ml Exam Constitutional: alert, oriented, well developed Psych: nl mood/affect, no complaints Head: atraumatic, normocephalic Eyes: EOMI, PERRL, nl conjunctiva, nl lids ENMT: nl external ears & nose, nl lips & teeth, nl nasal mucosa & septum Neck: non-tender, supple Respiratory: clear to auscultation, normal air movement, No congested cough, No crackles/rales, No diminished breath sounds, No intercostal retraction, No labored breathing, No other, No respirations, No tactile fremitus, No wheezing Cardiovascular: nl pulses, regular rate and rhythm, No S3, No S4, No bruits, No diastolic murmur, No edema, No gallop, No irregular rhythm, No jugular venous distention (JVD), No murmurs/extra sounds, No other, No rub, No systolic murmur Gastrointestinal: nl liver, spleen, non-tender, soft, No ascites, No bowel sounds, No distended, No firm, No hepatomegaly, No mass , No other, No rebound or guarding, No splenomegaly, No surgical scars, No tender Musculoskeletal: nl extremities to inspection, nl gait and stance, No joint tenderness, No muscle tone, No muscle weakness, No other, No range of motion, No spine non-tender, No swelling Extremities: normal pulses, No calf tenderness, No clubbing, No cyanosis, No edema, No other, No palpable cord, No pitting pedal edema, No tenderness Neurological: MARKET MASTER II-XII intact, nl mental status, nl speech, nl strength Skin: nl turgor Lymph: nl lymph nodes Results Result Diagram: 09/30/16 0632 10/01/16 0540 Results 24 hrs Laboratory Tests Test 09/30/16 17:33 09/30/16 21:22 10/01/16 02:00 10/01/16 05:40 Bedside Glucose 259 H 200 296 H Prothrombin Time 15.0 H Prothrombin Time Ratio 1.2 INR International Normalized Ratio 1.17 Activated Partial Thromboplast Time 29.4 Sodium Level 130 L Potassium Level 4.6 Chloride Level 100 Carbon Dioxide Level 23 Anion Gap 12 Blood Urea Nitrogen 8 Creatinine 0.57 Glucose Level 278 #H Calcium Level 8.8 Magnesium Level 1.5 L Test 10/01/16 07:56 10/01/16 11:56 Bedside Glucose 279 H 279 H Medications Medications Current Medications Ondansetron HCl (Zofran Inj) 4 mg Q6H PRN IV NAUSEA AND/OR VOMITING Last administered on 10/01/16 12:09; Admin Dose 4 MG; Start 09/29/16 at 07:30 Acetaminophen (Tylenol Tab) 650 mg Q6H PRN PO PAIN LEVEL 1-3 OR FEVER Last administered on 10/01/16 01:56; Admin Dose 650 MG; Start 09/29/16 at 07:30 Morphine Sulfate (morphine) 2 mg Q4H PRN IV PAIN LEVEL 7-10 Last administered on 09/29/16 22:38; Admin Dose 2 MG; Start 09/29/16 at 07:30 Enoxaparin Sodium (Lovenox) 40 mg DAILY SC Last administered on 10/01/16 08:30 ; Admin Dose 40 MG; Start 09/29/16 at 09:00 Atorvastatin Calcium (Lipitor) 80 mg DAILY PO Last administered on 10/01/16 08 :29; Admin Dose 80 MG; Start 09/29/16 at 09:00 Dipyridamole/ Aspirin (Aggrenox) 1 cap BID PO Last administered on 10/01/16 08 :21; Admin Dose 1 CAP; Start 09/29/16 at 09:30 Levetiracetam (Keppra) 500 mg BID PO Last administered on 10/01/16 08:21; Admin Dose 500 MG; Start 09/29/16 at 09:00 Meclizine HCl (Antivert) 12.5 mg Q6H PRN PO dizziness Last administered on 09/29 14:56; Admin Dose 12.5 MG; Start 09/29/16 at 07:30 Docusate Sodium/ Ferrous Fumarate (Susy-Sequels) 1 tab BID PO Last administered on 10/01/16 08:21; Admin Dose 1 TAB; Start 09/29/16 at 10:00 Miscellaneous Information 1 ea NOTE XX ; Start 09/29/16 at 11:30 Glucose (Glutose) 15 gm Q15M PRN PO DECREASED GLUCOSE; Start 09/29/16 at 11:30 Glucose (Glutose) 22.5 gm Q15M PRN PO DECREASED GLUCOSE; Start 09/29/16 at 11: 30 Dextrose (D50w Syringe) 25 ml Q15M PRN IV DECREASED GLUCOSE; Start 09/29/16 at 11:30 Glucagon (Glucagen) 1 mg Q15M PRN IM DECREASED GLUCOSE; Start 09/29/16 at 11:30 Glucose (Glutose) 15 gm Q15M PRN BUCCAL DECREASED GLUCOSE; Start 09/29/16 at 11 :30 Ondansetron HCl (Zofran Inj) 4 mg Q4H PRN IV NAUSEA AND/OR VOMITING Last administered on 09/30/16 22:29; Admin Dose 4 MG; Start 09/29/16 at 12:30 Diagnostic Test (Pha) (Accu-Chek) 1 ea 02 XX Last administered on 10/01/16 02: 05; Admin Dose 1 EA; Start 10/01/16 at 02:00 Ibuprofen (Motrin) 800 mg Q8 PRN PO Sinus Last administered on 10/01/16 08:21 ; Admin Dose 800 MG; Start 09/30/16 at 23:00 GOMEZ SCHUMACHER MD Oct 01, 2016 14:08
[2016-10-01] MEDS ORDERED: MAGNESIUM SULFATE 2 GM/50 ML 50 ML IVPB ONE (14:30)
--- NOTE | 2016-10-01 20:15 | SP ---
DATE OF PROCEDURE: PROCEDURE: EEG REFERRING PHYSICIAN: Dr. Berman. TECHNIQUE: EEG done using 10-20 International electrode system with photic stimulation. FINDINGS: Bilateral occipital hemisphere view shows delta waves 3 to 4 Hz, low amplitude, asymmetri c bilateral. Some electromyogram artifact is recorded. Some sharp waves recorded in the left tempo ral area radiate to the right side independently. IMPRESSION: This is an abnormal electroencephalogram. It shows sharp waves on top of generalized s lowing consistent with a history of postictal status. Followup EEG may be needed, if clinically ind icated. Again, thank you for asking me to see the patient with you. Dictated By: TERENCE ALEGRIA MD NA/NTS Conf#: [id number] DID#: [id number] CC: ABEL BERMAN MD;*End*
--- NOTE | 2016-10-01 20:46 | PN ---
DATE: REFERRING PHYSICIAN: Dr. Berman and ____ Thank you for asking me to see the patient with you. HISTORY OF PRESENT ILLNESS: The patient is a 46-year-old with acute onset of stroke, possibility of underlying seizure activity, diabetes, hypertension. The patient admitted through emergency room w ith generalized weakness. The patient was seen at [facility] 2 weeks ago for seizure and prolo nged postictal status. The patient came to the emergency room after she was feeling weak and diffic ulty with memory in which the patient was admitted for possibility of underlying seizure activity. The patient had an EEG today, which shows postictal status changes. CURRENT MEDICATIONS: Which include: 1. ____ mg every 8 hours. 2. Insulin sliding scale. 3. Zofran 4 mg every 4 hours. 4. Aggrenox 1 tablet twice a day. 5. Lovenox 40 mg subcutaneous once a day. 6. Lipitor 80 mg once a day. 7. Keppra 500 mg twice a day. 8. Morphine sulfate 2 mg every 4 hours as needed. 9. Meclizine (Antivert) 12.5 mg once a day. PHYSICAL EXAMINATION: Today, the patient is alert, awake, following simple commands. Looks confuse d. CRANIAL NERVES: Cranial nerve II: Pupils equal on both sides, reactive to light. Cranial nerves I II, IV, and : Extraocular muscles intact. No nystagmus. Cranial nerve V: Equal sensation to fa ce. Cranial nerve VII: Symmetrical face. Cranial nerve VIII: Decreased hearing bilaterally. Asbestos Brake Lining Finisher Helper nial nerves IX, X: Elevates palate. Cranial nerve XI: Elevates shoulder 5/5. Cranial nerve XII: With straight tongue. MOTOR: Decreased bilateral hand talent development analyst, 4+/5. SENSATION: Decreased for glove and sock area for light touch and temperature. COORDINATION: Fyaexk-vy-qprp test intact. HEART: Regular rate and rhythm. LUNGS: Equal breath sounds. ABDOMEN: Soft, relaxed, nondistended. No tenderness. ASSESSMENT AND PLAN: 1. The patient is a 46-year-old with right posterior temporal and occipital stroke with right poste rior communicating artery distribution. Will continue the patient on Aggrenox twice a day and keep the patient on Lovenox 40 mg subcutaneous once a day for stroke prophylaxis. 2. Seizure activity. We will follow up the patient with Keppra 500 mg twice a day. EEG shows post ictal changes. Keep the patient under seizure precaution as well as aspiration precaution. 3. History of mild to moderate peripheral neuropathy. We will follow up the patient when she is st able enough for nerve conduction study and electromyogram. 4. Will keep the patient under decubitus ulcer prophylaxis, as well as peripheral vascular disease, as well as deep venous thrombosis prophylaxis. 5. We will follow up the patient with acute rehab for more evaluation and treatment. Again, thank you for asking me to see the patient with you. Please add the dictation [id number] from . Is not in the computer yet. Dictated By: TERENCE ALEGRIA MD NA/NTS Conf#: [id number] DID#: [id number] CC: ABEL BERMAN MD;*EndCC*
[2016-10-02] VITALS (10 sets, daily range): BP systolic 99–122; BP diastolic 58–70; PULSE 71–86; RESP 16–18
[2016-10-02] MEDS: ACCU-CHEK XX SCH (02:22)
[2016-10-02] MEDS: ACETAMINOPHEN 325 MG TAB PO PRN ×2 (03:05→11:20)
[2016-10-02] MEDS: ATORVASTATIN 80 MG TAB PO SCH (07:56)
[2016-10-02] MEDS: INSULIN ASPART [NOVOLOG] 3 ML PEN SC SCH ×2 (07:56→12:07)
[2016-10-02] MEDS: LEVETIRACETAM 500 MG TAB PO SCH (07:57)
[2016-10-02] MEDS: DIPYRIDAMOLE/ASPIRIN (SR) CAP PO SCH (07:57)
[2016-10-02] MEDS: FERROUS FUMARATE (SR) TAB PO SCH (07:57)
[2016-10-02] MEDS: ENOXAPARIN 40 MG/0.4 ML SYG SC SCH (07:57)
[2016-10-02 08:25] LABS: CALCIUM 8.7 mg/dl (8.4-10.2); CREATININE 0.58 mg/dl (0.44-1.00); MAGNESIUM 1.9 mg/dl (1.7-2.5); POTASSIUM 4.3 mmol/L (3.5-5.1)
[2016-10-02] MEDS ORDERED: ASPI1CPM8 PO (13:33)
--- NOTE | 2016-10-02 13:39 | DS ---
Date/Time of Note Date/Time of Note DATE: 10/02/16 TIME: 13:34 Discharge Summary Admission/Discharge Info Admit Date/Time Sep 28, 2016 at 23:34 Discharge Date/Time Final Diagnosis 1. Acute CVA involving right posterior temporal and occipital lobes without neurological deficit, negative CTA head/neck, aggrenox, lipitor 2. Altered mental status 2/2 acute CVA, resolved 3. Seizure disorder, on keppra, follow up with neurology 4. DM, follow up with PCP 5. Hypertension, controlled Patient Condition: Stable Hospital Course The patient is a 46-year-old female with a history of CVA, diabetes, hypertension, dyslipidemia and seizure disorder who presented to the emergency department with generalized weakness. The patient was seen at [facility] 3 weeks ago for a seizure with a prolonged postictal state. When the patient presented to the ER family reported that the patient has been feeling weak and also she has been having a hard time remembering things, especially since yesterday, which they thought was from recovering from a postictal state. The patient also has been nauseated and actually vomited once last night which was nonbloody, nonbilious. When she presented to the ER, blood pressure was 131/76, heart rate 91, respiratory rate 18, temperature 98.9, oxygen saturation ____% on room air. Laboratory shows a WBC of 11.5, hemoglobin 10.4, lactic acid of 6.7, which also trended to 3.9. A brain CT was done and it showed age indeterminate bilateral temporo-occipital and right parietal infarct compared to a CT scan from 2015. Also noted was focal hypodensity in the central brent which may be artifactual but underlying lesion is difficult to exclude. Also noted is a chronic left temporal-parietal infarct, unchanged. No acute intracranial hemorrhage was noted. The patient was given IV Keppra, cefepime, IV fluid and Zofran while she was in the ER. Note that patient has not witnessed any seizure activity recently except as mentioned the one that happened 3 weeks ago. MRI of brain revealed acute infarction involving the right posterior temporal and occipital lobes, concerning for right MAINTENANCE CHIEF distribution infarct. CTA of head and neck both unremarkable. Patient has no neurological deficit clinically. She iwill be on aggrenox bid, and lipitor. EEG revealed postictal pattern. Case discussed with Neurologist Dr. Heart, we will continue keppra at the same dosage at this time. Follow up with neurlogy outpatient. Home Meds Active Scripts Aspirin-Dipyridamole* (Aggrenox*) 25-200 Mg Cpmp.12hr, 1 CAP PO BID, #60 CAP Prov:GOMEZ SCHUMACHER MD 10/02/16 Ondansetron Hcl* (Zofran*) 4 Mg Tablet, 4 MG PO Q6H for NAUSEA AND/OR VOMITING, #30 TAB Prov:CAT VILLEDA 03/28/16 Loperamide Hcl* (Imodium*) 2 Mg Capsule, 2 MG PO .WITH EACH DIARRHEA Y for DIARRHEA, #5 CAP MAX 16 mg/day Prov:CAT VILLEDA 10/28/15 Dicyclomine Hcl* (Bentyl*) 10 Mg Capsule, 10 MG PO QID for 3 Days, CAP Prov:CAT VILLEDA 10/28/15 Simethicone* (Anti-Gas/80*) 80 Mg Tab.chew, 80 MG PO Q6H Y for DISTENSION/GAS/ BLOATING for 7 Days, TAB.CHEW Prov:CAT VILLEDA 10/28/15 Ibuprofen* (Motrin*) 400 Mg Tab, 400 MG PO Q6, #30 TAB 0 Refills Prov:BECKY SAMANIEGO PA-C 09/12/15 Ondansetron Hcl* (Zofran*) 4 Mg Tablet, 4 MG PO Q8H Y for NAUSEA AND/OR VOMITING , #6 TAB Prov:JOLANTA BAILEY DO 06/12/15 Meclizine Hcl* (Antivert*) 12.5 Mg Tab, 12.5 MG PO Q6H Y for dizziness, #10 TAB Prov:JOLANTA BAILEY DO 06/12/15 Meclizine Hcl* (Antivert*) 25 Mg Tablet, 25 MG PO Q6H Y for dizziness, #20 TAB Prov:CHASE GARCIA PA-C 03/01/15 Reported Medications Levetiracetam* (Keppra*) 500 Mg Tablet, 500 MG PO BID 12/11/11 Folic Acid* (Folic Acid*) 1 Mg Tablet, 1 MG PO DAILY 12/11/11 Atorvastatin (Lipitor) 80 Mg Tablet, 80 MG PO DAILY 12/11/11 Dipyridamole-Aspirin* (Aggrenox*) 1 Cap Capsr, 1 CAP PO BID 12/11/11 Metformin* (Glucophage*) 500 Mg Tab, 500 MG PO DAILY 12/11/11 Clindamycin Hcl (Cleocin Hcl) 300 Mg Capsule, 300 MG PO DAILY 05/28/11 Gabapentin* (Gabapentin*) 300 Mg Capsule, 300 MG PO HS 05/28/11 Atorvastatin (Lipitor) 80 Mg Tablet, 80 MG PO DAILY 05/28/11 Levetiracetam* (Keppra*) 500 Mg Tablet, 500 MG PO 05/28/11 Metformin* (Glucophage*) 1,000 Mg Tablet, 1000 MG PO BID 05/28/11 Ferrous Fumarate (Hemocyte) 324 Mg Tablet, 324 MG PO BID 05/28/11 Discontinued Reported Medications Dipyridamole-Aspirin* (Aggrenox*) 1 Cap Capsr, 1 CAP PO DAILY 05/28/11 Discontinued Scripts Aspirin (Aspirin) 81 Mg Chew, 81 MG PO DAILY for 30 Days, TAB.CHEW Prov:CHANO SMITH 10/11/14 Follow-up Plan Dr. Heart in one week PCP in one week Pending Labs Laboratory Tests Test 10/01/16 17:16 10/01/16 21:55 10/02/16 02:15 10/02/16 07:17 Bedside Glucose 234mg/dL (70-220) 220mg/dL (70-220) 184mg/dL (70-220) Sodium Level 133mmol/L (135-144) Potassium Level 4.3mmol/L (3.5-5.1) Chloride Level 102mmol/L (97-110) Carbon Dioxide Level 22mmol/L (21-31) Anion Gap 13 (8-16) Blood Urea Nitrogen 8mg/dl (7-20) Creatinine 0.58mg/dl (0.44-1.00) Glucose Level 177mg/dl (70-220) Calcium Level 8.7mg/dl (8.4-10.2) Magnesium Level 1.9mg/dl (1.7-2.5) Test 10/02/16 07:27 10/02/16 11:51 Bedside Glucose 164mg/dL (70-220) 222mg/dL (70-220) GOMEZ SCHUMACHER MD Oct 02, 2016 13:39
--- NOTE | 2016-10-02 21:01 | PN ---
DATE: The patient is a 46-year-old lady with acute onset of stroke, underlying seizure activity, diabetes, hypertension. The patient admitted through the emergency room ____ anxiety with the possibility of underlying seizure activity prior to admission in which the patient had electroencephalogram, showe d postictal status. CURRENT MEDICATIONS: Include: 1. Keppra 500 mg twice a day. 2. Lipitor 80 mg once a day. 3. Lovenox 40 mg subcutaneous once a day. 4. Aggrenox 1 tablet twice a day. 5. Zofran 4 mg every 4 hours as needed. 6. Morphine sulfate 2 mg every 8 hours. 7. Meclizine 12.5 mg once a day. PHYSICAL EXAMINATION: GENERAL: On exam today, the patient is alert, awake, oriented, following simple commands. CRANIAL NERVES: Cranial nerve II: Pupils equal on both sides, reactive to light. Cranial nerves I II, IV and : Extraocular muscles intact without nystagmus. Cranial nerve V: Equal sensation to face. Cranial nerve VII: Symmetrical face. Cranial nerve VIII: Decreased hearing bilaterally. C ranial nerve X: Elevates palate. Cranial nerve XI: Elevates shoulder 5/5. Cranial nerve XII: St raight tongue. MOTOR: Decreased right hand drain layer, 4+/5. Sensation decreased for glove and sock area for light touc h and temperature. COORDINATION: Mzoomg-dd-peun test intact. HEART: Regular rate and rhythm. LUNGS: Equal breath sounds. ABDOMEN: Soft, relaxed, nondistended, nontender. ASSESSMENT AND PLAN: 1. This is a patient 46 years old with right posterior and occipital stroke with ____ stroke. The patient on Aggrenox for stroke prophylaxis as well as Lovenox 40 mg subcutaneous for DVT prophylaxis . 2. Seizure activity with postictal status on the electroencephalogram. Give the patient Keppra 500 mg. Follow up the patient in outpatient clinic. 3. History of peripheral neuropathy. Follow up the patient with nerve conduction study and EMG and electromyogram. 4. Give the patient decubitus ulcer and deep venous thrombosis prophylaxis. 5. Follow up the patient in rehab for more evaluation and treatment. Thank you for asking me to see the patient with you. Dictated By: TERENCE STEPHENS/CANDELARIA Conf#: [id number] [facility]#: [id number]
== END 2016-10-02 16:12 | disposition home or self-care (01) | DRG 66 ==
LOC: E/R 16:42 → MS4 23:34
PROVIDERS: ADMIT Internal Medicine; ATTEND Internal Medicine
DX: I63.531 Cerebral infarction due to unspecified occlusion or stenosis of right posterior cerebral artery (principal); E83.42 Hypomagnesemia; I10 Essential (primary) hypertension; I63.9 Cerebral infarction, unspecified; G40.909 Epilepsy, unspecified, not intractable, without status epilepticus; E11.9 Type 2 diabetes mellitus without complications; E78.5 Hyperlipidemia, unspecified; Z79.84 Long term (current) use of oral hypoglycemic drugs
CPT/HCPCS: 36415; 70450; 70496; 70498; 70551; 71010; 80048; 80053; 80061; 80306; 80307; 81003; 82140; 82962; 83036; 83605; 83690; 83735; 84100; 84484; 85025; 85610; 85730; 87040; 87086; 92507; 92523; 92610; 93005; 93306; 93880; 95819; 96374; 96375; 97162; A4310; J0692; J1650; J1815; J1953; J2270; J2405; J3030; J3475; J7030; J7040; J7042; Q9967

== ENCOUNTER 2016-11-07 10:48 | Emergency (ER) | payer MEDICAID ==
[~2016-11-07] VITALS: Ht 157.5 cm; Wt 56.0 kg
[~2016-11-07 10:48] MED LIST changes: -ASPI81TA3 PO
[2016-11-07 10:51] VITALS: Ht 157.5 cm; Wt 56.0 kg
[2016-11-07] MEDS ORDERED: SOD CHLORIDE 0.9% 500 ML IV STA (10:54)
[2016-11-07] MEDS ORDERED: LORAZEPAM 2 MG INJ IV STA (10:54)
[2016-11-07] MEDS ORDERED: ATOR40TA68 PO (11:07)
[2016-11-07] MEDS ORDERED: ASPI1CPM8 PO (11:07)
[2016-11-07] MEDS ORDERED: LEVE-5 PO (11:07)
[2016-11-07] MEDS ORDERED: METF1000 PO (11:08)
[2016-11-07 11:21] LABS: ADD SCAN DIFF NO
[2016-11-07 11:24] VITALS: BP 111/50; PULSE 116; RESP 21
[2016-11-07 11:28] LABS: BASOPHILS % 0.2 % (0.0-2.0); EOSINOPHILS # 0.1 10^3/ul (0.0-0.5); EOSINOPHILS % 0.8 % (0.0-7.0); HEMATOCRIT 29.4 % (37.0-47.0); HEMOGLOBIN 9.4 g/dl (12.0-16.0); LYMPHOCYTES # 2.8 10^3/ul (0.8-2.9); LYMPHOCYTES % 33.4 % (15.0-51.0); MEAN CORPUSCULAR HEMOGLOBIN 28.2 pg (29.0-33.0); MEAN CORPUSCULAR VOLUME 88.3 fl (82.0-101.0); MEAN PLATELET VOLUME 9.8 fl (7.4-10.4); MONOCYTE # 0.5 10^3/ul (0.3-0.9); MONOCYTES % 6.1 % (0.0-11.0); NEUTROPHILS % 59.3 % (39.0-77.0); PLATELET COUNT 362 10^3/UL (140-415); RED BLOOD COUNT 3.33 10^6/ul (4.20-5.40); RED CELL DISTRIBUTION WIDTH 12.9 % (11.5-14.5); WHITE BLOOD COUNT 8.5 10^3/ul (4.8-10.8)
[2016-11-07 11:43] LABS: POTASSIUM 3.7 mmol/L (3.5-5.1)
[2016-11-07 11:46] LABS: CREATININE 0.61 mg/dl (0.44-1.00)
[2016-11-07 11:47] LABS: CALCIUM 9.5 mg/dl (8.4-10.2)
--- NOTE | 2016-11-07 12:22 | ERD ---
ER Documentation Chief Complaint Date/Time DATE: 11/07/16 TIME: 12:20 Chief Complaint s/p seizure per ems report HPI 46-year-old female history of prior stroke complicated by seizure disorder on Keppra. The patient had a seizure today that was reported to be a generalized tonic-clonic by her son. The patient is a postictal state and is mildly postictal upon arrival. Accu-Chek in the field was normal. The patient does have breakthrough seizures and her last seizure was in August. The patient's son states that he gets her medications and states compliance with these medications. Patient has described mild lightheadedness over the last several days otherwise no headache chest pain or shortness of breath no fevers or chills. ROS All systems reviewed and are negative except as per history of present illness. Medications Home Meds Reported Medications Metformin Hcl* (Metformin Hcl*) 1,000 Mg Tablet, 1000 MG PO WITH BREAKFAST, #30 TAB 11/07/16 Levetiracetam* (Keppra*) 500 Mg Tablet, 500 MG PO BID, TAB 11/07/16 Aspirin-Dipyridamole* (Aggrenox*) 25-200 Mg Cpmp.12hr, 1 CAP PO BID, CAP 11/07/16 Atorvastatin* (Atorvastatin*) 40 Mg Tablet, 40 MG PO QHS, #30 TAB 11/07/16 Discontinued Reported Medications Levetiracetam* (Keppra*) 500 Mg Tablet, 500 MG PO BID 12/11/11 Folic Acid* (Folic Acid*) 1 Mg Tablet, 1 MG PO DAILY 12/11/11 Atorvastatin (Lipitor) 80 Mg Tablet, 80 MG PO DAILY 12/11/11 Dipyridamole-Aspirin* (Aggrenox*) 1 Cap Capsr, 1 CAP PO BID 12/11/11 Metformin* (Glucophage*) 500 Mg Tab, 500 MG PO DAILY 12/11/11 Clindamycin Hcl (Cleocin Hcl) 300 Mg Capsule, 300 MG PO DAILY 05/28/11 Gabapentin* (Gabapentin*) 300 Mg Capsule, 300 MG PO HS 05/28/11 Atorvastatin (Lipitor) 80 Mg Tablet, 80 MG PO DAILY 05/28/11 Levetiracetam* (Keppra*) 500 Mg Tablet, 500 MG PO 05/28/11 Metformin* (Glucophage*) 1,000 Mg Tablet, 1000 MG PO BID 05/28/11 Ferrous Fumarate (Hemocyte) 324 Mg Tablet, 324 MG PO BID 05/28/11 Discontinued Scripts Aspirin-Dipyridamole* (Aggrenox*) 25-200 Mg Cpmp.12hr, 1 CAP PO BID, #60 CAP Prov:GOMEZ SCHUMACHER MD 10/02/16 Ondansetron Hcl* (Zofran*) 4 Mg Tablet, 4 MG PO Q6H for NAUSEA AND/OR VOMITING, #30 TAB Prov:CAT VILLEDA 03/28/16 Loperamide Hcl* (Imodium*) 2 Mg Capsule, 2 MG PO .WITH EACH DIARRHEA Y for DIARRHEA, #5 CAP MAX 16 mg/day Prov:CAT VILLEDA 10/28/15 Dicyclomine Hcl* (Bentyl*) 10 Mg Capsule, 10 MG PO QID for 3 Days, CAP Prov:CAT VILLEDA 10/28/15 Simethicone* (Anti-Gas/80*) 80 Mg Tab.chew, 80 MG PO Q6H Y for DISTENSION/GAS/ BLOATING for 7 Days, TAB.CHEW Prov:CAT VILLEDA 10/28/15 Ibuprofen* (Motrin*) 400 Mg Tab, 400 MG PO Q6, #30 TAB 0 Refills Prov:BECKY SAMANIEGO PA-C 09/12/15 Ondansetron Hcl* (Zofran*) 4 Mg Tablet, 4 MG PO Q8H Y for NAUSEA AND/OR VOMITING , #6 TAB Prov:JOLANTA BAILEY DO 06/12/15 Meclizine Hcl* (Antivert*) 12.5 Mg Tab, 12.5 MG PO Q6H Y for dizziness, #10 TAB Prov:JOLANTA BAILEY DO 06/12/15 Meclizine Hcl* (Antivert*) 25 Mg Tablet, 25 MG PO Q6H Y for dizziness, #20 TAB Prov:CHASE GARCIA PA-C 03/01/15 Allergies Allergies: Coded Allergies: No Known Allergies (Verified Allergy, Mild, 11/07/16) PMhx/Soc History of Surgery: No Anesthesia Reaction: No Hx Neurological Disorder: Yes (stroke, seizure) Hx Respiratory Disorders: No Hx Cardiac Disorders: No Hx Psychiatric Problems: No Hx Miscellaneous Medical Probl: No Hx Alcohol Use: No Hx Substance Use: No Hx Tobacco Use: No Smoking Status: Never smoker FmHx Family History: No diabetes Physical Exam Vitals Vital Signs Date Time Temp Pulse Resp B/P Pulse Ox O2 Delivery O2 Flow Rate FiO2 11/07/16 11:24 116 21 111/50 93 Room Air 11/07/16 10:51 97.9 114 18 118/87 99 Physical Exam General: Thin female, slightly postictal but improving Head: Normocephalic, atraumatic. Eyes: Pupils equally reactive, EOM intact ENT: Moist mucous membranes Neck: Supple, no lymphadenopathy Respiratory: Lungs clear bilaterally, no distress Cardiovascular: RRR, no murmurs, rubs, or gallops Abdominal: Soft, non-tender, non-distended, no peritoneal signs : Deferred MSK: No edema, no unilateral swelling, 5/5 strength Neurologic: Alert and oriented to person and place, postictal state is improving , moving all extremities, normal speech, no focal weakness, no cerebellar signs Skin: No rash Psych: Normal mood Result Diagram: 11/07/16 1058 11/07/16 1058 Results 24 hrs Laboratory Tests Test 11/07/16 10:58 White Blood Count 8.510^3/ul Red Blood Count 3.3310^6/ul Hemoglobin 9.4g/dl Hematocrit 29.4% Mean Corpuscular Volume 88.3fl Mean Corpuscular Hemoglobin 28.2pg Mean Corpuscular Hemoglobin Concent 32.0g/dl Red Cell Distribution Width 12.9% Platelet Count 04314^3/UL Mean Platelet Volume 9.8fl Neutrophils % 59.3% Lymphocytes % 33.4% Monocytes % 6.1% Eosinophils % 0.8% Basophils % 0.2% Nucleated Red Blood Cells % 0.0/100WBC Neutrophils # 5.010^3/ul Lymphocytes # 2.810^3/ul Monocytes # 0.510^3/ul Eosinophils # 0.110^3/ul Basophils # 0.010^3/ul Nucleated Red Blood Cells # 0.010^3/ul Sodium Level 139mmol/L Potassium Level 3.7mmol/L Chloride Level 99mmol/L Carbon Dioxide Level 21mmol/L Anion Gap 23 Blood Urea Nitrogen 8mg/dl Creatinine 0.61mg/dl Glucose Level 221mg/dl Calcium Level 9.5mg/dl Current Medications Medications (Trade) Dose Ordered Sig/Aldo Route PRN Reason Start Time Stop Time Status Last Admin Dose Admin Sodium Chloride (NS) 500 ml @ 500 mls/hr Q1H STAT IV 11/07/16 10:54 11/07/16 11:53 DC 11/07/16 11:02 Lorazepam (Ativan) 0.5 mg ONCE STAT IV 11/07/16 10:54 11/07/16 10:56 DC 11/07/16 11:01 Procedures/MDM LAB INTERPRETATION: Slight anemia, no electrolyte disturbance MEDICAL DECISION MAKING: The patient presents to the emergency room with a generalized tonic-clonic seizure. She has a prolonged history of seizure disorder and takes Keppra. The patient likely has a breakthrough seizure. The patient has no signs or symptoms concerning for increased intracranial process or pressure. The patient has no evidence of electrolytic disturbance but I believe given her comorbidities basic blood work would be reasonable. ER COURSE: The patient was given IV fluids, 0.5 mg of Ativan. She has since returned to her neurologic baseline. Her electrolytes are normal. The patient has no evidence of infectious process. The patient is safe for discharge home with outpatient follow-up with neurology. I kept the patient and/or family informed of laboratory and diagnostic imaging results throughout the emergency room course. DISPOSITION PLAN: We discussed follow up with the patient's primary care doctor within 24 to 48 hours as needed. We also discussed return to the emergency room for worsening symptoms or worsening condition. Outpatient referral: [None required] Departure Diagnosis: Primary Impression: Seizure disorder Condition: Stable Patient Instructions: Seizure, Recurrent [Adult] Referrals: [facility] (PCP) Additional Instructions: Call your primary care doctor TOMORROW for an appointment during the next 1 WEEK.Tell the legal secretary that you were referred from this facility.See the doctor sooner or return here if your condition worsens before your appointment time. SHELDON SUN MD November 07, 2016 12:22
== END 2016-11-07 13:11 | disposition home or self-care (01) ==
LOC: E/R 10:48
DX: G40.909 Epilepsy, unspecified, not intractable, without status epilepticus (principal); R40.2252 Coma scale, best verbal response, oriented, at arrival to emergency department; R40.2142 Coma scale, eyes open, spontaneous, at arrival to emergency department; R40.2362 Coma scale, best motor response, obeys commands, at arrival to emergency department; Z79.82 Long term (current) use of aspirin
CPT/HCPCS: 36415; 80048; 84703; 85025; 96374; J2060; J7040; Z7502; Z7610

== ENCOUNTER 2018-03-04 19:59 | Emergency (ER) | END 2018-03-04 23:12 | disposition home or self-care (01) ==